=== PATIENT | female | born 1935 | race Caucasian/White ===

== ENCOUNTER 2017-12-18 19:21 | Emergency (ER) | payer MEDICARE, BC ==
[2017-12-18 20:07] LABS: BASO % 0.3 % (0.0-1.0); EOS # 0.5 10^3/uL (0.0-0.50); EOS % 8.6 % (0.0-3.0); HEMATOCRIT 36.2 % (36.0-47.0); HEMOGLOBIN 11.9 g/dl (12.0-15.5); IMMATURE GRANULOCYTE % 0.2 % (0-3.0); LYMPH % 34.3 % (24.0-44.0); MEAN CORPUSCULAR HEMOGLOBIN 30.6 pg (27.0-33.0); MEAN CORPUSCULAR HGB CONC 32.9 g/dl (32.0-36.5); MEAN CORPUSCULAR VOLUME 93.1 fl (80.0-96.0); MONO # 0.8 10^3/uL (0.0-0.8); NEUTROPHILS # 2.6 10^3/uL (1.8-7.7); NEUTROPHILS % 43.6 % (36.0-66.0); PLATELET COUNT, AUTOMATED 176 10^3/uL (150-450); RED BLOOD COUNT 3.89 10^6/uL (4.00-5.40); RED CELL DISTRIBUTION WIDTH 13.6 % (11.5-14.5); WHITE BLOOD COUNT 5.9 10^3/uL (4.0-10.0)
[2017-12-18] MEDS: NITROGLYCERIN 0.4 MG SUBL TABLET SL (20:13)
[2017-12-18] MEDS: ASPIRIN 81 MG CHEW TABLET PO (20:14)
[2017-12-18] MEDS: NS 1,000 ML IV (20:14)
[2017-12-18 20:51] LABS: PROTHROMBIN TIME 12.2 SECONDS (12.1-14.4)
[2017-12-18 21:14] LABS: ALBUMIN 3.3 GM/DL (3.2-5.2); ALBUMIN/GLOBULIN RATIO 0.97 (1.00-1.93); ALKALINE PHOSPHATASE 88 U/L (45-117); ALT/SGPT 19 U/L (12-78); ANION GAP 9 MEQ/L (8-16); AST/SGOT 22 U/L (7-37); BILIRUBIN,DIRECT < 0.1 MG/DL (0.0-0.2); BILIRUBIN,TOTAL 0.3 MG/DL (0.2-1.0); BLOOD UREA NITROGEN 18 MG/DL (7-18); CALCIUM LEVEL 8.3 MG/DL (8.8-10.2); CARBON DIOXIDE LEVEL 25 MEQ/L (21-32); CHLORIDE LEVEL 106 MEQ/L (98-107); CK-MB VALUE MASS < 1.0 NG/ML (<3.6); CPK CREATINE PHOSPHOKINASE 65 U/L (26-192); CREATININE FOR GFR 0.93 MG/DL (0.55-1.30); GLOMERULAR FILTRATION RATE > 60.0 (>32); GLUCOSE, FASTING 97 MG/DL (70-100); MB/CK RELATIVE INDEX 1.54 (< OR =4); NT-PRO BNP 321 PG/ML (<450); POTASSIUM SERUM 3.7 MEQ/L (3.5-5.1); SODIUM LEVEL 140 MEQ/L (136-145); TOTAL PROTEIN 6.7 GM/DL (6.4-8.2); TROPONIN I < 0.02 NG/ML (< 0.10)
[2017-12-18] MEDS: FUROSEMIDE 20 MG TAB PO (21:18)
[2017-12-18] MEDS: LABETALOL HCL 100 MG/20 ML VIAL IV (21:25)
[2017-12-18] MEDS: GI COCKTAIL 50ML BTL(HYOSCYAMINE/MAALOX/LIDOCAINE VISCOUS)(1:3:1) PO (22:31)
[2017-12-18 23:03] LABS: CPK CREATINE PHOSPHOKINASE 59 U/L (26-192); MB/CK RELATIVE INDEX 1.69 (< OR =4); TROPONIN I < 0.02 NG/ML (< 0.10)
== END 2017-12-18 23:59 | disposition home or self-care (01) ==
LOC: M ED 19:21
DX: R07.89 Other chest pain (principal); I10 Essential (primary) hypertension; I25.10 Atherosclerotic heart disease of native coronary artery without angina pectoris; Z82.49 Family history of ischemic heart disease and other diseases of the circulatory system; Z88.1 Allergy status to other antibiotic agents
CPT/HCPCS: 71045

== ENCOUNTER 2020-10-23 02:12 | Inpatient (IN) | payer MEDICARE, BC ==
[~2020-10-23] VITALS: Ht 160 cm; Wt 87.2 kg
[~2020-10-23 02:12] MED LIST: LASI20TA3 PO; LISI-898 PO; METO1TAB87 PO; OMEP10CASR PO
[2020-10-23 03:40] LABS: BASO % 0.6 % (0.0-1.0); EOS # 0.4 10^3/uL (0.0-0.5); EOS % 7.1 % (0.0-3.0); HEMATOCRIT 38.7 % (36.0-47.0); HEMOGLOBIN 12.9 g/dl (12.0-15.5); LYMPH # 2.2 10^3/uL (1.5-5.0); LYMPH % 42.5 % (24.0-44.0); MEAN CORPUSCULAR HEMOGLOBIN 30.6 pg (27.0-33.0); MEAN CORPUSCULAR HGB CONC 33.3 g/dl (32.0-36.5); MEAN CORPUSCULAR VOLUME 91.9 fl (80.0-96.0); MONO # 0.7 10^3/uL (0.0-0.8); NEUTROPHILS # 1.9 10^3/uL (1.5-8.5); NEUTROPHILS % 36.4 % (36.0-66.0); PLATELET COUNT, AUTOMATED 202 10^3/uL (150-450); RED BLOOD COUNT 4.21 10^6/uL (4.00-5.40); WHITE BLOOD COUNT 5.1 10^3/uL (4.0-10.0)
[2020-10-23 03:56] LABS: INR 0.92; PROTHROMBIN TIME 12.6 SECONDS (12.5-14.3)
[2020-10-23 03:57] LABS: PARTIAL THROMBOPLASTIN TIME 26.1 SECONDS (24.2-38.5)
[2020-10-23 04:09] LABS: ALBUMIN 3.6 GM/DL (3.2-5.2); ALT/SGPT 20 U/L (12-78); BILIRUBIN,DIRECT 0.1 MG/DL (0.0-0.2); BILIRUBIN,TOTAL 0.4 MG/DL (0.2-1.0); BLOOD UREA NITROGEN 15 MG/DL (7-18); CALCIUM LEVEL 8.9 MG/DL (8.8-10.2); CARBON DIOXIDE LEVEL 32 MEQ/L (21-32); CHLORIDE LEVEL 105 MEQ/L (98-107); CREATININE FOR GFR 0.77 MG/DL (0.55-1.30); GLOMERULAR FILTRATION RATE > 60.0 (>32); GLUCOSE, FASTING 92 MG/DL (70-100); LIPASE 149 U/L (73-393); POTASSIUM SERUM 4.7 MEQ/L (3.5-5.1); SODIUM LEVEL 140 MEQ/L (136-145); TOTAL PROTEIN 7.2 GM/DL (6.4-8.2)
[2020-10-23] MEDS ORDERED: hydrALAZINE 20MG/ML 1ML VIAL (J0360 PER 20MG) IV ONE (04:40)
[2020-10-23] MEDS ORDERED: D5W/0.45% SODIUM CHLORIDE 1,000 ML IV SCH (05:40)
[2020-10-23 06:02] LABS: RSV AMPLIFICATION NEGATIVE (NEGATIVE)
[2020-10-23] MEDS: SUCRALFATE SUSP 1GM/10ML UD PO SCH ×3 (06:15→19:35)
--- NOTE | 2020-10-23 06:32 | HPEPDOC ---
[facility] Medical History & Physical Date of Admission Oct 23, 2020 Date of Service: Oct 23, 2020 History and Physical CHIEF COMPLAINT: Bright red blood per rectum HISTORY OF PRESENT ILLNESS: 85-year-old female with history of chronic atrial flutter, right lower extremity DVT bilateral PE hypertension diastolic congestive heart failure on chronic anticoagulation presented to emergency room with 2-week history of on and off bright red blood per rectum which is painless without fever or chills at home. Patient was told to stop her oral anticoagulation for the past 7 days currently now 8 days when she presents with complaints of bright red blood in the toilet as well as in her diapers which she wears at night. she denies any diaphoresis shortness of breath palpitations lightheadedness near syncope or falls at home. She was seen by her primary care physician today and urged to come to the ER for current issues. Patient had a colonoscopy 10 years ago which showed colonic polyps by Dr. Nathan in [place]. She has had no prior history of upper GI bleed and currently denies any hematemesis coffee-ground emesis abdominal pain nausea or vomiting. Patient denies any history of AVM, peptic ulcer disease- gastric or duodenal in the past. In the ER patient was found to have hypertensive urgency with blood pressure of 242 systolic, improved to 138 mmHg by the time she was admitted, hemoglobin of 12.9 with a heme positive stool. Hospitalist was asked to admit the patient for recurrent lower GI bleed in the s etting of chronic anticoagulation. PAST MEDICAL HISTORY: chronic atrial flutter, right lower extremity DVT bilateral PE hypertension diastolic congestive heart failure on chronic anticoagulation PAST SURGICAL HISTORY: Bilateral cataract surgery open reduction internal fixation of the right knee tu bal ligation hernia repair bilateral carpal tunnel surgery SOCIAL HISTORY: Lives with her healthcare proxy is her phone # [phone] denies alcohol recreational drug use or tobacco abuse retired teacher senior director of [employer] FAMILY HISTORY: Noncontributory due to advanced age of 85 ALLERGIES: Please see below. REVIEW OF SYSTEMS: 10 point review of systems negative aside from positive findings in HPI HOME MEDICATIONS: Please see below. PHYSICAL EXAMINATION: VITAL SIGNS: See below GENERAL APPEARANCE: No distress no pallor no cyanosis HEENT: No JVD no thyromegaly no cervical lymphadenopathy pupils equally round reactive extract muscles intact CARDIOVASCULAR: Irregularly irregular S1-S2 no murmurs noted LUNGS: Clear to auscultation no wheezing or rales ABDOMEN: Positive bowel sounds soft nontender nondistended heme positive stool no hepatosplenomegaly no rebound or guarding EXTREMITIES: No cyanosis no clubbing LABORATORY DATA: See below. IMAGING: See below MICROBIOLOGY: Please see below. ASSESSMENT: 85-year-old female with history of chronic atrial flutter pulmonary embolism bilaterally 1 year ago with right lower extremity DVT on chronic anticoagulation until 2 weeks ago and patient had on and off bright red blood per rectum which is painless without fever or chills. patient has been off anticoagulation for 7 days with ongoing bright red blood per rectum with asymptomatic blood loss. Patient does not have anemia with hemoglobin of 12.9 and hemodynamically stable. she will be admitted as an inpatient for 2 midnights for the following acute issues. Acute blood loss -Patient will be kept n.p.o. Hemoglobin hematocrit every 6 hourly she is currently hemodynamically stable and will be kept on D5 half-normal saline to prevent hypoglycemia while n.p.o. Acute GI bleed -Suspected lower GI bleed most likely diverticular bleed or AVM. Patient denies any pain -Transfuse RBC if hemoglobin is less than 8 or ongoing blood loss with symptomatic anemia. -surgical consult for colonoscopy to be decided by a.m. team -Hemoglobin hematocrit every 6 hourly. Currently hemodynamically stable -Empiric PPI and Carafate for now -Obtain previous colonoscopy report from her softball core molder in [place] History of chronic atrial flutter -Resume on metoprolol -rate controlled History of pulmonary embolism/History of right lower extremity DVT -Off oral anticoagulation for 7 days -If ongoing bleeding patient may need an IVC filter since oral anticoagulation is contraindicated with active GI bleed -May need to repeat venous Dopplers of bilateral lower extremities and CT chest rule out active PE and DVT. -If patient continues to have active PE and DVT and oral anticoagulation is contraindicated she will need an IVC filter placement -Defer to morning team for IR consult for IVC filter placement Hypertensive urgency, resolved -Resume home medications including lisinopril and metoprolol. May add Norvasc if not well controlled on home medications History of diastolic heart failure -Check 2D echo -D5 half-normal saline at 75 mL's an hour and monitor for fluid overload Diet n.p.o. DVT prophylaxis compression stockings due to active GI bleed Vital Signs Vital Signs Date Time Temp Pulse Resp B/P (MAP) Pulse Ox O2 Delivery O2 Flow Rate FiO2 10/23/20 05:57 68 95 10/23/20 05:48 138/60 (86) 10/23/20 03:00 18 10/23/20 02:13 97.0 Room Air Laboratory Data Labs 24H Laboratory Tests 2 10/23/20 03:17: Immature Granulocyte % (Auto) 0.4, Neutrophils (%) (Auto) 36.4, Lymphocytes (%) (Auto) 42.5, Monocytes (%) (Auto) 13.0H, Eosinophils (%) (Auto) 7.1H, Basophils (%) (Auto) 0.6, Neutrophils # (Auto) 1.9, Lymphocytes # (Auto) 2.2, Monocytes # (Auto) 0.7, Eosinophils # (Auto) 0.4, Basophils # (Auto) 0.0, Nucleated Red B lood Cells % (auto) 0.0, Prothrombin Time 12.6, Prothromb Time International Ratio 0.92, Activated Partial Thromboplast Time 26.1, Anion Gap 3L, Glomerular Filtration Rate > 60.0, Lactic Acid Level 1.4, Calcium Level 8.9, Total Bilirubin 0.4, Direct Bilirubin 0.1, Aspartate Amino Transf (AST/SGOT) 20, Alanine Aminotransferase (ALT/SGPT) 20, Alkaline Phosphatase 82, Total Protein 7.2, Albumin 3.6, Albumin/Globulin Ratio 1.0L, Lipase 149 10/23/20 04:38: Coronavirus (COVID-19)(PCR) NEGATIVE, Influenza Type A (RT-PCR) NEGATIVE, Influenza Type B (RT-PCR) NEGATIVE, Respiratory Syncytial Virus (PCR) NEGATIVE CBC/BMP Laboratory Tests 10/23/20 03:17 Home Medications Scheduled Furosemide (Lasix) 20 Mg Tab, 1 TAB PO DAILY Lisinopril (Lisinopril) 5 Mg Tab, 1 TAB PO DAILY Metoprolol Tartrate (Metoprolol Tartrate) 25 Mg Tab, 1 TAB PO BID Omeprazole (Omeprazole) 10 Mg Capcr, 1 CAP PO DAILY Allergies Coded Allergies: alendronate sodium (Verified Allergy, Unknown, 10/23/20) ciprofloxacin (Verified Allergy, Unknown, 10/23/20) A-FIB/CHADSVASC A-FIB History Current/History of A-Fib/PAF?: Yes Current PO Anticoag Therapy: No Age/Risk Factor Scoring CHADSVASC: CHADSVASC Response (Comments) Value Age Risk Factor Age >/= 75 years old 2 Gender Risk Factor Female 1 Hx of CHF Yes 1 Hx of HTN Yes 1 Hx of Stroke/TIA/or VTE No 0 Hx of Diabetes No 0 Hx of Vascular Disease No 0 Total 5 Treatment Treatment ordered: NONE Reason Anticoagulant not given: Current bleeding ALYSSA GREENE MD Oct 23, 2020 06:32
[2020-10-23] MEDS ORDERED: FURO20TA2 PO (06:56)
[2020-10-23] MEDS ORDERED: FLEC50HA PO (06:56)
[2020-10-23] MEDS ORDERED: LOSA25TA14 PO (06:56)
[2020-10-23] MEDS ORDERED: METO1TAB87 PO (06:56)
[2020-10-23] MEDS ORDERED: LOSARTAN 25 MG TAB PO SCH (09:00)
[2020-10-23] MEDS ORDERED: FUROSEMIDE 20MG/2ML VIAL (J1940) IV SCH (09:00)
[2020-10-23] MEDS ORDERED: lisinopriL 5 MG TAB PO SCH (09:00)
[2020-10-23] MEDS: PANTOPRAZOLE 40MG VIAL (C9113 PER 1) IV SCH ×2 (09:09→21:36)
[2020-10-23] MEDS: METOPROLOL TART 25 MG TABLET PO SCH ×2 (09:09→21:37)
[2020-10-23 09:15] LABS: BASO # 0.1 10^3/uL (0.0-0.2); BASO % 1.1 % (0.0-1.0); EOS # 0.3 10^3/uL (0.0-0.5); EOS % 5.9 % (0.0-3.0); HEMOGLOBIN 12.8 g/dl (12.0-15.5); LYMPH % 38.7 % (24.0-44.0); MEAN CORPUSCULAR HEMOGLOBIN 30.9 pg (27.0-33.0); MEAN CORPUSCULAR HGB CONC 33.7 g/dl (32.0-36.5); MEAN CORPUSCULAR VOLUME 91.8 fl (80.0-96.0); MONO # 0.6 10^3/uL (0.0-0.8); MONO % 11.5 % (2.0-8.0); NEUTROPHILS # 2.2 10^3/uL (1.5-8.5); NEUTROPHILS % 42.6 % (36.0-66.0); PLATELET COUNT, AUTOMATED 208 10^3/uL (150-450); RED BLOOD COUNT 4.14 10^6/uL (4.00-5.40); WHITE BLOOD COUNT 5.2 10^3/uL (4.0-10.0)
[2020-10-23 09:41] LABS: ALBUMIN 3.4 GM/DL (3.2-5.2); ALT/SGPT 20 U/L (12-78); BILIRUBIN,TOTAL 0.5 MG/DL (0.2-1.0); BLOOD UREA NITROGEN 13 MG/DL (7-18); CARBON DIOXIDE LEVEL 30 MEQ/L (21-32); CHLORIDE LEVEL 106 MEQ/L (98-107); CREATININE FOR GFR 0.68 MG/DL (0.55-1.30); GLOMERULAR FILTRATION RATE > 60.0 (>32); GLUCOSE, FASTING 89 MG/DL (70-100); MAGNESIUM LEVEL 2.1 MG/DL (1.8-2.4); SODIUM LEVEL 142 MEQ/L (136-145)
[2020-10-23] MEDS: FLECAINIDE 50MG TABLET PO SCH ×2 (10:38→21:37)
--- NOTE | 2020-10-23 11:07 | IPNPDOC ---
Text Note Date of Service The patient was seen on 10/23/20. NOTE Subjective: No any acute events overnight. Blood pressure within normal limits in the morning Objective: GENERAL APPEARANCE: NAD HEENT: no scleral icterus, no JVD, EOMI CARDIOVASCULAR: Irregularly irregular LUNGS: CTA ABDOMEN: soft & not tender w palpation MUSCULOSKELETAL: no cyanosis, no swelling INTEGUMENT: no generalized pallor NEUROLOGICAL: cranial nerve function from 2-12 intact i, follows commands, speech not dysarthric Assessment and plan Patient is 85 years old female with past medical history of 85-year-old female with history of chronic atrial flutter pulmonary embolism bilaterally 1 year ago with right lower extremity DVT on chronic anticoagulation until 2 weeks ago and patient had on and off bright red blood per rectum which is painless without fever or chills. patient has been off anticoagulation for 7 days with ongoing bright red blood per rectum with asymptomatic blood loss. Acute blood loss/GI bleed Hemoglobin stable in the morning 12.5 Continue clear liquid diet H&H every 6 hours PPI twice daily We will proceed with CT scan abdomen and pelvis to rule out diverticulosis, mass Atrial fibrillation/atrial flutter Heart rate under control Oral target anticoagulation on hold History of pulmonary embolism/History of right lower extremity DVT Continue to monitor H&H Patient stated that pulmonary embolism and legs DVT were unprovoked I will discuss with interventional radiologist IVC filter placement Hypertensive urgency/hypertension Resume home medications Blood pressure under control Diastolic CHF Stop IV fluid Continue home meds Not in acute exacerbation VS,Fishbone, I+O VS, Fishbone, I+O Laboratory Tests 10/23/20 03:17 10/23/20 08:51 Vital Signs Date Time Temp Pulse Resp B/P (MAP) Pulse Ox O2 Delivery O2 Flow Rate FiO2 10/23/20 10:45 59 95 10/23/20 10:00 18 135/68 (90) Room Air 10/23/20 07:49 97.7 RYAN ZAPIEN DO Oct 23, 2020 11:07
[2020-10-23] MEDS: GASTROGRAFIN SOLUTION 30ML PO SCH ×4 (11:45→16:59)
[2020-10-23] MEDS ORDERED: diphenhydrAMINE 50MG/ML VIAL (J1200) As Ordered ONE (12:20)
[2020-10-23] MEDS ORDERED: LIDOCAINE 1% MDV 20ML VIAL As Ordered ONE (12:21)
[2020-10-23] MEDS ORDERED: ISOVUE-300 61% 50ML VIAL As Ordered ONE ×2 (12:21→12:27)
[2020-10-23] MEDS ORDERED: MIDAZOLAM INJ 2MG/2ML VIAL (J2250 PER 1MG) As Ordered ONE (12:21)
[2020-10-23] MEDS ORDERED: fentaNYL 100 MCG/2 ML INJECTION (J3010) As Ordered ONE (12:21)
--- NOTE | 2020-10-23 13:42 | IRMSE ---
[facility] IR Moderate Sedation Eval. Date and Time Date: Oct 23, 2020 Time: 12:37 ASA Classification ASA Classification: II-Mild systemic disease, III-Severe systemic dis. Mallampati Score: II NPO: Yes Obstructive Sleep Apnea: No Interval Plan: moderate sedation DEANGELO QUINONEZ MD Oct 23, 2020 13:42
[2020-10-23 14:18] VITALS: BP 182/95
[2020-10-23 14:33] VITALS: BP 180/94
[2020-10-23 14:54] VITALS: BP 169/76
[2020-10-23 15:15] LABS: HEMOGLOBIN 12.6 g/dl (12.0-15.5)
[2020-10-23 15:32] VITALS: BP 164/76
[2020-10-23] MEDS ORDERED: LOSARTAN 50MG TABLET PO ONE (17:30)
[2020-10-23] MEDS ORDERED: ISOVUE-370 76% 100ML VIAL As Ordered ONE (17:49)
[2020-10-23] MEDS ORDERED: CHLORTHALIDONE 25 MG TAB PO ONE (19:00)
--- NOTE | 2020-10-23 19:38 | REPVR ---
PROCEDURE INFORMATION: Exam: CT Abdomen And Pelvis With Contrast Exam date and time: 10/23/2020 6:06 PM Age: 85 years old Clinical indication: Other: Gi bleed TECHNIQUE: Imaging protocol: Computed tomography of the abdomen and pelvis with contrast. Radiation optimization: All CT scans at this facility use at least one of these dose optimization techniques: automated exposure control; mA and/or kV adjustment per patient size (includes targeted exams where dose is matched to clinical indication); or iterative reconstruction. Contrast material: ISOVUE 370; Contrast volume: 100 ml; Contrast route: INTRAVENOUS (IV); COMPARISON: CR PORTABLE CHEST X-RAY 12/18/2017 8:08 PM FINDINGS: Lungs: No suspicious mass or airspace process in the visualized lung bases. Liver: Liver is unremarkable aside from benign simple fluid density hepatic cysts measuring up to 2.4 cm. Gallbladder and bile ducts: Gallbladder is present and shows no evidence of gallstone. Pancreas: Pancreas appears normal. No focal mass or peripancreatic inflammation. Spleen: Spleen appears homogeneous without focal mass. Adrenal glands: Adrenal glands are normal in appearance. Kidneys and ureters: Kidneys are unremarkable aside from a benign simple fluid density exophytic 2.6 cm right renal cyst. Stomach and bowel: No evidence of small bowel obstruction. Terminal ileum has normal appearance. Diverticular changes are present within the colon without inflammation. Appendix: Appendix is not seen. No RLQ inflammation to suggest appendicitis. Intraperitoneal space: No pneumoperitoneum. Vasculature: Infrarenal IVC filter is present. Atherosclerotic change present in the aorta, without aneurysm. Main portal and splenic veins enhance normally. Lymph nodes: No enlarged lymph nodes. Urinary bladder: Urinary bladder appears normal. Reproductive: No enlargement of the uterus or ovaries. Prominence of the vaginal soft tissues which may be thickened. Bones/joints: Bony structures are normal except for lumbar spine degenerative disc changes. Soft tissues: Unremarkable. IMPRESSION: 1. No acute surgical or inflammatory process and no explanation for the clinical history of gastrointestinal hemorrhage. 2. Prominent upper vaginal and cervical soft tissues COMMENTS: For patients with an IVC filter, recommend assessment for a management plan for the patient's IVC filter. If there is no established management plan, recommend referral to an interventional clinician on a nonemergent basis for evaluation. Electronically signed by: Sandor Cates On 10/23/2020 19:38:03 PM
[2020-10-23 21:08] LABS: HEMATOCRIT 36.7 % (36.0-47.0); HEMOGLOBIN 12.3 g/dl (12.0-15.5)
[2020-10-23 22:00] VITALS: BP 155/78
[2020-10-24] MEDS: SUCRALFATE SUSP 1GM/10ML UD PO SCH ×4 (05:27→18:14)
[2020-10-24 06:00] VITALS: BP 137/72
[2020-10-24 06:02] LABS: BASO % 0.7 % (0.0-1.0); EOS # 0.3 10^3/uL (0.0-0.5); EOS % 4.8 % (0.0-3.0); HEMATOCRIT 37.2 % (36.0-47.0); HEMOGLOBIN 12.5 g/dl (12.0-15.5); LYMPH # 1.6 10^3/uL (1.5-5.0); MEAN CORPUSCULAR HEMOGLOBIN 30.9 pg (27.0-33.0); MEAN CORPUSCULAR HGB CONC 33.6 g/dl (32.0-36.5); MEAN CORPUSCULAR VOLUME 92.1 fl (80.0-96.0); MONO # 0.5 10^3/uL (0.0-0.8); NEUTROPHILS % 55.1 % (36.0-66.0); PLATELET COUNT, AUTOMATED 211 10^3/uL (150-450); RED BLOOD COUNT 4.04 10^6/uL (4.00-5.40); WHITE BLOOD COUNT 5.4 10^3/uL (4.0-10.0)
[2020-10-24 06:33] LABS: ALBUMIN 3.3 GM/DL (3.2-5.2); ALT/SGPT 17 U/L (12-78); BILIRUBIN,TOTAL 0.8 MG/DL (0.2-1.0); BLOOD UREA NITROGEN 10 MG/DL (7-18); CALCIUM LEVEL 8.5 MG/DL (8.8-10.2); CARBON DIOXIDE LEVEL 29 MEQ/L (21-32); CHLORIDE LEVEL 105 MEQ/L (98-107); CREATININE FOR GFR 0.89 MG/DL (0.55-1.30); GLOMERULAR FILTRATION RATE > 60.0 (>32); GLUCOSE, FASTING 83 MG/DL (70-100); MAGNESIUM LEVEL 1.9 MG/DL (1.8-2.4); POTASSIUM SERUM 4.2 MEQ/L (3.5-5.1); SODIUM LEVEL 138 MEQ/L (136-145); TOTAL PROTEIN 6.4 GM/DL (6.4-8.2)
[2020-10-24] MEDS ORDERED: PERCOCET 5MG/325MG TAB PO PRN (06:55)
[2020-10-24] MEDS: PANTOPRAZOLE 40MG VIAL (C9113 PER 1) IV SCH ×2 (08:43→19:42)
[2020-10-24] MEDS: FLECAINIDE 50MG TABLET PO SCH ×2 (08:45→19:42)
[2020-10-24] MEDS: LOSARTAN 25 MG TAB PO SCH (08:46)
[2020-10-24] MEDS: METOPROLOL TART 25 MG TABLET PO SCH ×2 (08:46→19:44)
[2020-10-24] MEDS ORDERED: CHLORTHALIDONE 25 MG TAB PO SCH (09:00)
--- NOTE | 2020-10-24 13:10 | IPNPDOC ---
Text Note Date of Service The patient was seen on 10/24/20. NOTE Subjective: Patient stated that yesterday evening she had 1 bowel movement with stool covered with red blood. Objective: GENERAL APPEARANCE: NAD HEENT: no scleral icterus, no JVD, EOMI CARDIOVASCULAR: Irregularly irregular LUNGS: CTA ABDOMEN: soft & not tender w palpation MUSCULOSKELETAL: no cyanosis, no swelling INTEGUMENT: no generalized pallor NEUROLOGICAL: cranial nerve function from 2-12 intact i, follows commands, speech not dysarthric Assessment and plan Patient is 85 years old female with past medical history of 85-year-old female with history of chronic atrial flutter pulmonary embolism bilaterally 1 year ago with right lower extremity DVT on chronic anticoagulation until 2 weeks ago and patient had on and off bright red blood per rectum which is painless without fever or chills. patient has been off anticoagulation for 7 days with ongoing bright red blood per rectum with asymptomatic blood loss. Acute blood loss/GI bleed Hemoglobin stable in the morning 12.5 Continue clear liquid diet H&H every 6 hours PPI twice daily CT scan abdomen and pelvis showed. No acute surgical or inflammatory process Appreciate/agree with surgical consult Atrial fibrillation/atrial flutter Heart rate under control Oral target anticoagulation on hold History of pulmonary embolism/History of right lower extremity DVT Continue to monitor H&H Patient stated that pulmonary embolism and legs DVT were unprovoked IVC filter placement was placed yesterday Hypertensive urgency/hypertension Continue home medications Blood pressure under control Diastolic CHF I's and O's Continue home meds Not in acute exacerbation VS,Fishbone, I+O VS, Fishbone, I+O Laboratory Tests 10/23/20 14:48 10/23/20 21:03 10/24/20 05:21 Vital Signs Date Time Temp Pulse Resp B/P (MAP) Pulse Ox O2 Delivery O2 Flow Rate FiO2 10/24/20 09:00 74 130/74 10/24/20 06:00 98.2 18 95 Room Air 10/23/20 13:35 2.0 I&O- Last 24 Hours up to 6 AM 10/24/20 06:00 Intake Total 880 ml Balance 880 ml RYAN ZAPIEN DO Oct 24, 2020 13:09
[2020-10-24 13:39] VITALS: BP 133/72
--- NOTE | 2020-10-24 13:45 | IRCOV ---
[facility] IR Consult Office Visit IR Consult Office Visit DATE: Oct 23, 2020 REASON FOR CONSULTATION/CHIEF COMPLAINT: IVC filter placement. HISTORY OF PRESENT ILLNESS: 85-year-old female with atrial flutter, diastolic heart failure, history of unprovoked bilateral pulmonary emboli and right lower extremity DVT presents to the hospital with GI bleeding. Because of bleeding she stopped her Xarelto for 7 days. She is referred for IVC filter placement as she is not a candidate for anticoagulation. Patient reports a year ago she woke up in the middle of the night, short of breath with chest pain. At that time, she was found to have bilateral pulmonary emboli and right lower extremity DVT. She was started on Eliquis and subsequently changed to Xarelto, for side effects. However, she has had to stop her anticoagulation on and off because of GI bleeding. She has not been on any anticoagulation for the past 7 days and her bright red blood per rectum, continues. Patient has not had recent colonoscopy. She has no history of cancer. Patient denies any new lower extremity swelling or pain. Patient denies chest pain, shortness of breath, orthopnea or paroxysmal nocturnal dyspnea. Patient denies dizziness or syncope. No family history of blood clots. Patient is referred for consideration for IVC filter placement as she is currently not a candidate for anticoagulation, due to bleeding. ALLERGIES: Please see below. HOME MEDICATIONS: Please see below. PAST MEDICAL HISTORY: Atrial flutter Right lower extremity DVT Bilateral PE Hypertension Diastolic Congestive heart failure PAST SURGICAL HISTORY: Cataract surgery Right knee surgery Tubal ligation Hernia repair Carpal tunnel surgery FAMILY HISTORY: Noncontributory. SOCIAL HISTORY: Nonsmoker. Denies alcohol or drugs. Spends 6 months out of the year in [place]. REVIEW OF SYSTEMS: Otherwise negative. PHYSICAL EXAMINATION: VITAL SIGNS: Please see below. GENERAL APPEARANCE: Appears well. Comfortable at rest. HEENT: No scleral icterus. RESPIRATORY: Normal breathing at rest. CARDIOVASCULAR: Normal rate. ABDOMEN: Non-distended. EXTREMITIES: Bilateral lower extremity edema. No asymmetric limb swelling. No calf tenderness. NEUROLOGICAL: Alert and oriented. PSYCHIATRIC: Appropriate to circumstance. LABORATORY DATA: 10/23/2020 hemoglobin 12.8 hematocrit 38 WBC 5.2 platelets 208 sodium 142 potassium 4.0 BUN 13 creatinine 0.68 GFR greater than 60 INR 0.9 Imaging: None. ASSESSMENT/PLAN: 85-year-old female with atrial flutter, diastolic heart failure and recent history of unprovoked bilateral pulmonary emboli and right lower extremity DVT, presents with GI bleeding. She is not able to be anticoagulated due to her GI bleeding. I agree she has indication for IVC filter placement. We discussed the risks and benefits of the procedure and patient is willing to proceed. She is scheduled for IVC filter placement. 2. Patient will need colonoscopy and further workup for her GI bleeding. After filter placement, patient should follow-up with me in 6 months. Depending on the reason for her GI bleeding and if she is able to resume anti-coagulation in the future, there may be indication for filter retrieval in the future. I spent 30 minutes reviewing patient's records and in consultation with the patient. Thank you for this referral. Allergies Coded Allergies: alendronate sodium (Verified Allergy, Unknown, 10/23/20) ciprofloxacin (Verified Allergy, Unknown, 10/23/20) Home Medications Scheduled Flecainide Acetate (Flecainide Acetate), 50 MG PO Q12H, (Reported) Furosemide (Furosemide), 20 MG PO DAILY, (Reported) Losartan Potassium (Losartan Potassium), 25 MG PO DAILY, (Reported) Metoprolol Tartrate (Metoprolol Tartrate), 25 MG PO BID, (Reported) Scheduled PRN Furosemide (Furosemide), 20 MG PO DAILY PRN for EDEMA, (Reported) Discontinued Medications Furosemide (Lasix), 1 TAB PO DAILY Discontinued Reason: Re-entering as new Lisinopril (Lisinopril), 1 TAB PO DAILY, (Reported) Discontinued Reason: Re-entering as new Metoprolol Tartrate (Metoprolol Tartrate), 1 TAB PO BID, (Reported) Discontinued Reason: Re-entering as new Omeprazole (Omeprazole), 1 CAP PO DAILY Discontinued Reason: Pt states not taking VS, I&O, 24H, Fishbone Vital Signs/I&O Vital Signs Date Time Temp Pulse Resp B/P (MAP) Pulse Ox O2 Delivery O2 Flow Rate FiO2 10/24/20 09:00 74 130/74 10/24/20 06:00 98.2 18 95 Room Air 10/23/20 13:35 2.0 I&O- Last 24 Hours up to 6 AM 10/24/20 05:59 Intake Total 880 ml Balance 880 ml Laboratory Data 24H LABS Laboratory Tests 2 10/24/20 05:21: Immature Granulocyte % (Auto) 0.4, Neutrophils (%) (Auto) 55.1, Lymphocytes (%) (Auto) 29.0, Monocytes (%) (Auto) 10.0H, Eosinophils (%) (Auto) 4.8H, Basophils (%) (Auto) 0.7, Neutrophils # (Auto) 3.0, Lymphocytes # (Auto) 1.6, Monocytes # (Auto) 0.5, Eosinophils # (Auto) 0.3, Basophils # (Auto) 0.0, Nucleated Red Blood Cells % (auto) 0.0, Anion Gap 4L, Glomerular Filtration Rate > 60.0, Calcium Level 8.5L, Magnesium Level 1.9, Total Bilirubin 0.8#, Aspartate Amino Transf (AST/SGOT) 16, Alanine Aminotransferase (ALT/SGPT) 17, Alkaline Phosphatase 77, Total Protein 6.4, Albumin 3.3, Albumin/Globulin Ratio 1.1L CBC/BMP Laboratory Tests 10/23/20 14:48 10/23/20 21:03 10/24/20 05:21 DEANGELO QUINONEZ MD Oct 24, 2020 13:45
--- NOTE | 2020-10-24 13:54 | IRPON ---
IR Postoperative Note Date Of Procedure: Oct 23, 2020 Time Of Procedure: 16:00 IR Postoperative Note IR IVC Filter Placement. IR Inferior vena cavogram. IR Ultrasound of the right groin. IR moderate sedation. Clinical Information:Unprovoked bilateral pulmonary emboli and right lower extremity DVT with contraindication to anticoagulation. Physician: Dr. Mora. Procedure: The patient was advised of the benefits, risks, and alternatives of the procedure and informed consent was obtained. A time out was performed with verification of the patient's name, MRN, site of procedure, and type of procedure to be performed. The patient was positioned in the supine position on the angiographic table. The site was prepped and draped in the usual sterile fashion. Moderate sedation was performed by the physician including the presence of an independent trained RN, who assisted in monitoring the patient's level of consciousness and physiological status. Following the administration of fentanyl and Versed, the physician spent 45 minutes of continuous [id number] time with the patient. Preliminary ultrasound of the right groin was performed, demonstrating patent right common femoral vein. The right common femoral vein was accessed, under ultrasound guidance, using a microintroducer system. An 035 Bentson wire was advanced under fluoroscopy guidance, into the central inferior vena cava. The access site was dilated, under fluoroscopy guidance, and a filter sheath was advanced over the wire, and placed into the right common iliac vein. An inferior venacavogram was then performed, demonstrating a normal caliber inferior vena cava without filling defects and the renal vein inflows at the L2 level. No caval anomalies were identified. The filter sheath was then advanced over the wire, under fluoroscopy guidance, c entral to the renal vein inflow. A Cook Celect inferior vena cava filter was then advanced through the sheath and positioned within the infra-renal inferior vena cava. The filter was then deployed in the usual fashion. Positioning was confirmed fluoroscopically. The sheath was then removed and hemostasis obtained with manual compression. The patient tolerated the procedure well and was returned to the PRU in stable condition. EBL: < 5 mL. Complications:None. Conclusions: 1. Normal cavogram. 2. Successful deployment of a Cook Celect inferior vena cava filter in the infra-renal inferior vena cava. 3. Patient to follow-up in IR clinic in 6 months to discuss filter retrieval if appropriate. Thank you for this referral. DEANGELO MORA MD Oct 24, 2020 13:54
[2020-10-24 15:34] LABS: HEMATOCRIT 35.9 % (36.0-47.0); HEMOGLOBIN 11.8 g/dl (12.0-15.5)
[2020-10-24 21:23] LABS: HEMATOCRIT 34.5 % (36.0-47.0); HEMOGLOBIN 11.7 g/dl (12.0-15.5)
[2020-10-24 22:00] VITALS: BP 164/75
[2020-10-25] MEDS: SUCRALFATE SUSP 1GM/10ML UD PO SCH ×3 (00:17→11:52)
[2020-10-25 06:00] VITALS: BP 167/85
[2020-10-25 06:12] LABS: BASO # 0.1 10^3/uL (0.0-0.2); BASO % 0.8 % (0.0-1.0); EOS # 0.4 10^3/uL (0.0-0.5); EOS % 6.2 % (0.0-3.0); HEMATOCRIT 34.4 % (36.0-47.0); HEMOGLOBIN 11.5 g/dl (12.0-15.5); LYMPH # 2.3 10^3/uL (1.5-5.0); LYMPH % 38.9 % (24.0-44.0); MEAN CORPUSCULAR HEMOGLOBIN 30.7 pg (27.0-33.0); MEAN CORPUSCULAR HGB CONC 33.4 g/dl (32.0-36.5); MEAN CORPUSCULAR VOLUME 91.7 fl (80.0-96.0); MONO # 0.7 10^3/uL (0.0-0.8); MONO % 11.7 % (2.0-8.0); NEUTROPHILS # 2.5 10^3/uL (1.5-8.5); NEUTROPHILS % 42.1 % (36.0-66.0); PLATELET COUNT, AUTOMATED 177 10^3/uL (150-450); RED BLOOD COUNT 3.75 10^6/uL (4.00-5.40)
[2020-10-25 06:42] LABS: ALT/SGPT 15 U/L (12-78); BILIRUBIN,TOTAL 0.8 MG/DL (0.2-1.0); BLOOD UREA NITROGEN 8 MG/DL (7-18); CALCIUM LEVEL 8.1 MG/DL (8.8-10.2); CARBON DIOXIDE LEVEL 29 MEQ/L (21-32); CHLORIDE LEVEL 102 MEQ/L (98-107); CREATININE FOR GFR 0.77 MG/DL (0.55-1.30); GLOMERULAR FILTRATION RATE > 60.0 (>32); GLUCOSE, FASTING 89 MG/DL (70-100); MAGNESIUM LEVEL 1.8 MG/DL (1.8-2.4); POTASSIUM SERUM 3.3 MEQ/L (3.5-5.1); SODIUM LEVEL 136 MEQ/L (136-145); TOTAL PROTEIN 6.2 GM/DL (6.4-8.2)
[2020-10-25] MEDS ORDERED: POTASSIUM CHLORIDE 10 MEQ SR TABLET PO ONE (07:50)
[2020-10-25] MEDS: LOSARTAN 25 MG TAB PO SCH (08:14)
[2020-10-25 08:16] VITALS: BP 167/85
[2020-10-25] MEDS: PANTOPRAZOLE 40MG VIAL (C9113 PER 1) IV SCH (08:16)
[2020-10-25] MEDS: FLECAINIDE 50MG TABLET PO SCH (08:16)
[2020-10-25] MEDS: METOPROLOL TART 25 MG TABLET PO SCH (08:16)
[2020-10-25 08:23] LABS: HEMATOCRIT 35.6 % (36.0-47.0); HEMOGLOBIN 11.8 g/dl (12.0-15.5)
[2020-10-25] MEDS ORDERED: COZA1TAB PO (10:44)
[2020-10-25] MEDS ORDERED: PANT40TA29 PO (10:44)
--- NOTE | 2020-10-25 12:28 | CR ---
CONSULTATION DATE: 10/24/2020 REASON FOR CONSULTATION: Anemia. BRIEF HISTORY OF PRESENT ILLNESS: Patient is an 85-year-old female who presents for gastrointestinal (GI) bleeding with anticoagulation for deep venous thromboses (DVTs) and had evidence of pulmonary embolism. Had a vena cava filter placed today and has been stable from a hematocrit standpoint. I am asked to see her for this recurrent gastrointestinal (GI) bleeding that has been bright red blood per rectum that is intermittent in nature. 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 MEDICAL HISTORY: Significant for: 1. History of atrial flutter. 2. History of DVT, PE. 3. Hypertension. 4. Congestive heart failure. 5. Cataracts. 6. Right knee surgery. 7. Tubal ligation. 8. Hernia repair. 9. Carpal tunnel surgery. PHYSICAL EXAMINATION: Reveals an elderly female who looks stated age. HEENT: Unremarkable. LUNGS: Clear. HEART: Irregularly irregular. ABDOMEN: Soft, nontender, nondistended. IMPRESSION AND PLAN: Patient has a lower gastrointestinal (GI) bleed. At this point she is stable, and my recommendation is if she stays stable overnight, from a surgical standpoint she can be discharged home with the plans on outpatient colonoscopy given that she has a pre kindergarten teacher. She can contact them in the morning. I anticipate they may be able to accommodate her and fit her into the endoscopy schedule in the near future. She can obviously followup with us if she has any further questions or concerns or would like to try to arrange an outpatient colonoscopy through our office as necessary.
--- NOTE | 2020-10-25 13:26 | DS.PDOC ---
Discharge Summary General Date of Admission Oct 23, 2020 at 02:13 Date of Discharge 10/25/20 Discharge Summary PROCEDURES PERFORMED DURING STAY: [None]. ADMITTING DIAGNOSES: Acute blood loss/GI bleed History of pulmonary embolism/History of right lower extremity DVT Atrial fibrillation/atrial flutter Hypertensive urgency/hypertension Diastolic CHF DISCHARGE DIAGNOSES: Acute blood loss/GI bleed History of pulmonary embolism/History of right lower extremity DVT Atrial fibrillation/atrial flutter Hypertensive urgency/hypertension Diastolic CHF COMPLICATIONS/CHIEF COMPLAINT: Gi Bleeding. HISTORY OF PRESENT ILLNESS: Patient is 85 years old female with past medical history of 85-year-old female with history of chronic atrial flutter pulmonary embolism bilaterally 1 year ago with right lower extremity DVT on chronic anticoagulation until 2 weeks ago and patient had on and off bright red blood per rectum which is painless without fever or chills. patient has been off anticoagulation for 7 days with ongoing bright red blood per rectum with asymptomatic blood loss. HOSPITAL COURSE: During the hospital stay the following issues addressed Acute blood loss/GI bleed Hemoglobin stable in the morning 12.[address] scan abdomen and pelvis showed. 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 ALLERGIES: Please see below. PHYSICAL EXAMINATION ON DISCHARGE: GENERAL APPEARANCE: NAD HEENT: no scleral icterus, no JVD, EOMI CARDIOVASCULAR: Irregularly irregular LUNGS: CTA ABDOMEN: soft & not tender w palpation MUSCULOSKELETAL: no cyanosis, no swelling INTEGUMENT: no generalized pallor NEUROLOGICAL: cranial nerve function from 2-12 intact i, follows commands, speech not dysarthric LABORATORY DATA: Please see below. PROGNOSIS: Fair ACTIVITY: [As tolerated]. DIET: Cardiac DISPOSITION: 01 Home, Self-Care. DISCHARGE INSTRUCTIONS: Restart anticoagulation only after discussion with PCP and GI team ITEMS TO FOLLOWUP ON ON OUTPATIENT: Follow-up with PCP and GI team DISCHARGE CONDITION: [Stable]. TIME SPENT ON DISCHARGE: 40 minutes. Vital Signs/I&Os Vital Signs Date Time Temp Pulse Resp B/P (MAP) Pulse Ox O2 Delivery O2 Flow Rate FiO2 10/25/20 08:16 64 167/85 10/25/20 06:00 97.5 18 94 Room Air 10/23/20 13:35 2.0 I&O- Last 24 Hours up to 6 AM 10/25/20 06:00 Intake Total 2440 ml Balance 2440 ml Laboratory Data Labs 24H Laboratory Tests 2 10/25/20 05:53: Immature Granulocyte % (Auto) 0.3, Neutrophils (%) (Auto) 42.1, Lymphocytes (%) (Auto) 38.9, Monocytes (%) (Auto) 11.7H, Eosinophils (%) (Auto) 6.2H, Basophils (%) (Auto) 0.8, Neutrophils # (Auto) 2.5, Lymphocytes # (Auto) 2.3, Monocytes # (Auto) 0.7, Eosinophils # (Auto) 0.4, Basophils # (Auto) 0.1, Nucleated Red Blood Cells % (auto) 0.0, Anion Gap 5L, Glomerular Filtration Rate > 60.0, Calcium Level 8.1L, Magnesium Level 1.8, Total Bilirubin 0.8, Aspartate Amino Transf (AST/SGOT) 13, Alanine Aminotransferase (ALT/SGPT) 15, Alkaline Phosphatase 70, Total Protein 6.2L, Albumin 3.0L, Albumin/Globulin Ratio 0.9L CBC/BMP Laboratory Tests 10/24/20 15:10 10/24/20 21:14 10/25/20 05:53 10/25/20 08:03 Discharge Medications Scheduled Flecainide Acetate (Flecainide Acetate) 50 Mg Tablet, 50 MG PO Q12H, (Reported) Furosemide (Furosemide) 20 Mg Tablet, 20 MG PO DAILY, (Reported) TAKES AROUND 1500 Losartan Potassium (Cozaar) 25 Mg Tablet, 50 MG PO DAILY Metoprolol Tartrate (Metoprolol Tartrate) 25 Mg Tablet, 25 MG PO BID, (Reported) Pantoprazole Sodium (Pantoprazole Sodium) 40 Mg Tablet.dr, 40 MG PO DAILY Scheduled PRN Furosemide (Furosemide) 20 Mg Tablet, 20 MG PO DAILY PRN for EDEMA, (Reported) TAKES IF WEIGHT IS UP MORE THAN 2 POUNDS Allergies Coded Allergies: alendronate sodium (Verified Allergy, Unknown, 10/23/20) ciprofloxacin (Verified Allergy, Unknown, 10/23/20) RYAN ZAPIEN DO Oct 25, 2020 13:26
--- NOTE | 2020-10-25 14:15 | ECHO ---
ECHOCARDIOGRAM DATE OF PROCEDURE: 10/24/2020 Age: Gender: Height: 160 cm Weight: 87 kg REFERRING PHYSICIAN: Dr. Caroline Joseph. INDICATION: Heart failure, unspecified. MEASUREMENTS: 2D Measurements: Interventricular septum 1.60 cm Posterior wall 1.50 cm Left ventricle diastole 2.9 cm Left ventricle systole 1.6 cm Aortic root at the sinus of Valsalva 3.9 cm Proximal ascending aorta 3.6 cm Left atrium 3.3 cm Doppler Measurements: No aortic stenosis or regurgitation LVOT velocity 134 cm/s LVOT VTI 27.4 cm No mitral regurgitation or stenosis Mitral E velocity 64.7 cm/s Mitral A velocity 92.5 cm/s Mitral deceleration time 291 msec Trace tricuspid regurgitation Very mild pulmonic regurgitation MITRAL ANNULAR TISSUE DOPPLER E prime septal 6.2 cm/s, E prime lateral 6.4 cm/s DESCRIPTION: Rhythm was sinus. This was a moderately technically difficult echocardiogram. This was a 2D, M-mode, color flow Doppler, and pulsed wave Doppler examination including mitral annular tissue Doppler. CONCLUSIONS: 1. Moderate concentric left ventricle hypertrophy with reduced LV cavity size. Hyperdynamic LV systolic function. LVEF 75% by visual estimate. No regional LV wall motion abnormalities. Grade 1 LV diastolic dysfunction. 2. Mild dilatation of the aortic root at the level of the sinus of Valsalva. 3. Very mild aortic valve sclerosis of a 3-cusp aortic valve. No aortic regurgitation. 4. Suggestive of normal central venous pressure (5-10 mmHg). 5. Moderately technically difficult echocardiogram.
== END 2020-10-25 13:15 | disposition home or self-care (01) | DRG 378 ==
LOC: M ED 02:12 → M ED INP 02:13 → ENRESERV 11:35 → M MS5PR 14:00
PROVIDERS: ADMIT General Practice; ATTEND Internal Medicine
PROC: 06H03DZ Insertion of Intraluminal Device into Inferior Vena Cava, Percutaneous Approach (ICD-10-PCS; principal; 2020-10-23 12:30)
DX: K62.5 Hemorrhage of anus and rectum (principal); Q27.30 Arteriovenous malformation, site unspecified; I50.32 Chronic diastolic (congestive) heart failure; D62 Acute posthemorrhagic anemia; I48.92 Unspecified atrial flutter; I16.0 Hypertensive urgency; I48.91 Unspecified atrial fibrillation; Z86.718 Personal history of other venous thrombosis and embolism; Z86.711 Personal history of pulmonary embolism; I11.0 Hypertensive heart disease with heart failure; Z79.899 Other long term (current) drug therapy; Z88.8 Allergy status to other drugs, medicaments and biological substances; Z98.41 Cataract extraction status, right eye; Z98.42 Cataract extraction status, left eye

== ENCOUNTER → 2020-12-16 | Outpatient (CLI) | payer MEDICARE, BC ==
[~2020-12-16] MED LIST changes: +COZA1TAB PO; +FLEC50HA PO; +FURO20TA2 PO; +LOSA25TA14 PO; +PANT40TA29 PO
== END ==
LOC: M LABSMTC 10:23
PROVIDERS: ATTEND Nurse Practitioner Critical Care Medicine
DX: Z20.822 Contact with and (suspected) exposure to COVID-19 (principal)

== ENCOUNTER → 2021-01-10 | Outpatient (CLI) | payer MEDICARE, BC ==
[~2021-01-10] MED LIST changes: +ISOVUE-370 76% 100ML VIAL As Ordered ONE
--- NOTE | 2021-01-10 18:47 | REPVR ---
PROCEDURE INFORMATION: Exam: CT Chest With Contrast; Diagnostic Exam date and time: 01/10/2021 6:06 PM Age: 85 years old Clinical indication: Condition or disease; Other: Colon CA staging TECHNIQUE: Imaging protocol: Diagnostic computed tomography of the chest with contrast. 3D rendering (Not supervised by radiologist): MIP and/or 3D reconstructed images were created by the technologist. Radiation optimization: All CT scans at this facility use at least one of these dose optimization techniques: automated exposure control; mA and/or kV adjustment per patient size (includes targeted exams where dose is matched to clinical indication); or iterative reconstruction. Contrast material: ISOVUE 370; Contrast volume: 75 ml; Contrast route: INTRAVENOUS (IV); COMPARISON: CR PORTABLE CHEST X-RAY 12/18/2017 8:08 PM FINDINGS: Thyroid: 10 mm low-attenuation nodule in the thyroid isthmus without suspicious features. No follow-up suggested. Lungs: Well inflated lungs with flattened diaphragmatic contours and increased retrosternal airspace consistent with COPD. Pleural spaces: Unremarkable. No pneumothorax. No pleural effusion. Heart: Unremarkable. No cardiomegaly. No pericardial effusion. 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 maximally. There is no dissection or saccular component. Lymph nodes: Unremarkable. No enlarged lymph nodes. Liver: Multiple liver cysts demonstrated measuring up to 2.6 cm in the right lobe of the liver. Bones/joints: The spine demonstrates mild degenerative changes. Soft tissues: Unremarkable. IMPRESSION: 1. There is fusiform dilatation of the supravalvular ascending thoracic aorta which measures 4 cm. maximally. There is no dissection or saccular component. 2. COPD. 3. No acute findings. COMMENTS: Consistent with the [employer]'s Incidental Findings Committee white paper (J Am Edward Radiol 2015): In patients aged 35 years and older with an incidental thyroid nodule equal to or greater than 1.[address], MRI or extrathyroidal US, further evaluation with dedicated thyroid US is recommended for patients with normal life expectancy and without comorbidities. For smaller nodules without suspicious features, no further evaluation or follow up is recommended. Electronically signed by: Edilson Castro On 01/10/2021 18:47:18 PM
== END ==
LOC: M RAD 17:31
PROVIDERS: ATTEND Colon & Rectal Surgery
DX: C18.0 Malignant neoplasm of cecum (principal); E04.1 Nontoxic single thyroid nodule; I77.810 Thoracic aortic ectasia; J44.9 Chronic obstructive pulmonary disease, unspecified; K76.89 Other specified diseases of liver
CPT/HCPCS: 71260; Q9967

== ENCOUNTER → 2021-11-03 | Outpatient (CLI) | payer MEDICARE, BC ==
[~2021-11-03] MED LIST changes: +GASTROGRAFIN SOLUTION 30ML (Q9963) As Ordered ONE; -LISI-898 PO; +LISI5TAB11 PO; +LOSA25TA13 PO; -LOSA25TA14 PO
== END ==
LOC: M RAD 11:52
PROVIDERS: ATTEND Colon & Rectal Surgery
DX: C18.0 Malignant neoplasm of cecum (principal); Z15.09 Genetic susceptibility to other malignant neoplasm; N28.1 Cyst of kidney, acquired; K86.89 Other specified diseases of pancreas; Z95.828 Presence of other vascular implants and grafts; K57.90 Diverticulosis of intestine, part unspecified, without perforation or abscess without bleeding; E04.1 Nontoxic single thyroid nodule; I31.3 Pericardial effusion (noninflammatory); I70.0 Atherosclerosis of aorta; I25.10 Atherosclerotic heart disease of native coronary artery without angina pectoris; I71.2 Thoracic aortic aneurysm, without rupture; K76.89 Other specified diseases of liver; M51.34 Other intervertebral disc degeneration, thoracic region; I51.7 Cardiomegaly
CPT/HCPCS: 71260; 74177; Q9963; Q9967

== ENCOUNTER 2021-12-04 20:58 | Observation (INO) | payer MEDICARE, BC ==
[~2021-12-04] VITALS: Ht 160 cm; Wt 82.7 kg
[~2021-12-04 20:58] MED LIST changes: -GASTROGRAFIN SOLUTION 30ML (Q9963) As Ordered ONE; -ISOVUE-370 76% 100ML VIAL As Ordered ONE
[2021-12-04 21:30] VITALS: BP 217/100
[2021-12-04 21:33] VITALS: BP 217/100
[2021-12-04 21:37] LABS: BASO # 0.1 10^3/uL (0.0-0.2); EOS # 0.4 10^3/uL (0.0-0.5); EOS % 7.9 % (0.0-3.0); HEMOGLOBIN 13.1 g/dl (12.0-15.5); LYMPH # 2.2 10^3/uL (1.5-5.0); LYMPH % 42.4 % (24.0-44.0); MEAN CORPUSCULAR HEMOGLOBIN 30.5 pg (27.0-33.0); MEAN CORPUSCULAR HGB CONC 32.8 g/dl (32.0-36.5); MEAN CORPUSCULAR VOLUME 93.2 fl (80.0-96.0); MONO # 0.6 10^3/uL (0.0-0.8); MONO % 11.4 % (2.0-8.0); NEUTROPHILS # 1.9 10^3/uL (1.5-8.5); NEUTROPHILS % 36.9 % (36.0-66.0); PLATELET COUNT, AUTOMATED 208 10^3/uL (150-450); RED BLOOD COUNT 4.29 10^6/uL (4.00-5.40); WHITE BLOOD COUNT 5.2 10^3/uL (4.0-10.0)
[2021-12-04 21:45] VITALS: BP 228/94
[2021-12-04 21:50] LABS: INR 0.89; PROTHROMBIN TIME 12.5 SECONDS (12.7-14.5)
[2021-12-04 21:51] LABS: PARTIAL THROMBOPLASTIN TIME 26.8 SECONDS (25.9-37.0)
[2021-12-04] MEDS: hydrALAZINE 20MG/ML 1ML VIAL (J0360 PER 20MG) IV PRN ×2 (21:57→22:29)
[2021-12-04 22:00] VITALS: BP 214/98
[2021-12-04 22:11] LABS: CK-MB VALUE MASS < 1.0 NG/ML (<3.6); CPK CREATINE PHOSPHOKINASE 72 U/L (26-192); MB/CK RELATIVE INDEX 1.39 (< OR =4)
[2021-12-04 22:15] VITALS: BP 172/81
[2021-12-04 22:16] LABS: RSV AMPLIFICATION NEGATIVE (NEGATIVE)
[2021-12-04 22:30] VITALS: BP 172/80
[2021-12-04 23:31] LABS: APPEARANCE, URINE MANUAL CLEAR (CLEAR); BILIRUBIN, URINE MANUAL NEGATIVE (NEGATIVE); BLOOD URINE MANUAL NEGATIVE (NEGATIVE); COLOR, URINE MANUAL YELLOW (YELLOW); GLUCOSE, URINE (UA) MANUAL NEGATIVE (NEGATIVE); KETONE, URINE MANUAL NEGATIVE (NEGATIVE); LEUKOCYTE ESTERASE, URINE MAN POSITIVE (NEGATIVE); NITRITE, URINE MANUAL NEGATIVE (NEGATIVE); PROTEIN, URINE MANUAL NEGATIVE (NEGATIVE); UROBILINOGEN, URINE MANUAL NORMAL (NORMAL)
[2021-12-04 23:37] LABS: BACTERIA, URINE NONE SEEN; HYALINE CAST, URINE NONE SEEN /lpf (0-1); SQUAMOUS EPITHELIAL CELL URINE SMALL AMOUNT /hpf (SMALL AMT)
[2021-12-04 23:38] LABS: RENAL EPITHELIAL CELLS, URINE SMALL AMOUNT /hpf
[2021-12-04] MEDS ORDERED: ISOVUE-370 76% 100ML VIAL As Ordered ONE (23:52)
[2021-12-05] VITALS (9 sets, daily range): BP systolic 115–202; BP diastolic 56–94
[2021-12-05] MEDS ORDERED: CALC250T PO (00:48)
[2021-12-05] MEDS ORDERED: VITA100093 PO (00:48)
[2021-12-05] MEDS ORDERED: RA T500C2 PO (00:48)
[2021-12-05] MEDS ORDERED: GLUCTAB7 PO (00:48)
[2021-12-05] MEDS ORDERED: VITMTA PO (00:48)
[2021-12-05] MEDS ORDERED: PRES10CA2 PO (00:48)
[2021-12-05] MEDS ORDERED: LOSA25TA13 PO (00:48)
[2021-12-05] MEDS ORDERED: HOME MED LIST COMPLETE! XX SCH (00:50)
[2021-12-05] MEDS ORDERED: ASPIRIN 81 MG CHEW TABLET PO ONE ×2 (01:25→07:00)
[2021-12-05] MEDS ORDERED: hydrALAZINE 20MG/ML 1ML VIAL (J0360 PER 20MG) IV PRN (01:25)
[2021-12-05] MEDS ORDERED: META28.32 PO (01:58)
[2021-12-05] MEDS ORDERED: ASPIRIN 81 MG CHEW TABLET PO SCH (09:00)
[2021-12-05 09:02] LABS: BLOOD UREA NITROGEN 13 MG/DL (7-18); CALCIUM LEVEL 9.1 MG/DL (8.8-10.2); CARBON DIOXIDE LEVEL 19 MEQ/L (21-32); CHLORIDE LEVEL 105 MEQ/L (98-107); CREATININE FOR GFR 0.68 MG/DL (0.55-1.30); GLOMERULAR FILTRATION RATE > 60.0 (>32); GLUCOSE, FASTING 112 MG/DL (70-100); SODIUM LEVEL 133 MEQ/L (136-145)
[2021-12-05] MEDS: LOSARTAN 25 MG TAB PO SCH (10:18)
[2021-12-05] MEDS: METOPROLOL TART 25 MG TABLET PO SCH ×2 (10:19→20:39)
[2021-12-05] MEDS: FLECAINIDE 50MG TABLET PO SCH ×2 (10:20→20:39)
[2021-12-05] MEDS ORDERED: ATORVASTATIN 20 MG TAB PO SCH (21:00)
[2021-12-06] VITALS: BP 120/62
[2021-12-06 04:00] VITALS: BP 139/64
[2021-12-06 06:40] LABS: HEMATOCRIT 34.6 % (36.0-47.0); HEMOGLOBIN 11.7 g/dl (12.0-15.5); MEAN CORPUSCULAR HEMOGLOBIN 30.7 pg (27.0-33.0); MEAN CORPUSCULAR HGB CONC 33.8 g/dl (32.0-36.5); MEAN CORPUSCULAR VOLUME 90.8 fl (80.0-96.0); PLATELET COUNT, AUTOMATED 185 10^3/uL (150-450); RED BLOOD COUNT 3.81 10^6/uL (4.00-5.40); WHITE BLOOD COUNT 6.3 10^3/uL (4.0-10.0)
[2021-12-06 07:02] LABS: BLOOD UREA NITROGEN 15 MG/DL (7-18); CALCIUM LEVEL 8.7 MG/DL (8.8-10.2); CARBON DIOXIDE LEVEL 29 MEQ/L (21-32); CHLORIDE LEVEL 105 MEQ/L (98-107); CREATININE FOR GFR 0.76 MG/DL (0.55-1.30); GLOMERULAR FILTRATION RATE > 60.0 (>32); GLUCOSE, FASTING 86 MG/DL (70-100); SODIUM LEVEL 139 MEQ/L (136-145)
[2021-12-06 08:15] VITALS: BP_SYST 137; BP_SYST 140; BP_DIAS 68; BP_DIAS 74
[2021-12-06] MEDS: FLECAINIDE 50MG TABLET PO SCH (08:34)
[2021-12-06 08:35] VITALS: BP 140/68
[2021-12-06] MEDS: LOSARTAN 25 MG TAB PO SCH (08:35)
[2021-12-06] MEDS: METOPROLOL TART 25 MG TABLET PO SCH (08:35)
[2021-12-06] MEDS ORDERED: METAMUCIL (PSYLLIUM) PACKET PO SCH (09:00)
[2021-12-06] MEDS ORDERED: ASPIRIN 81 MG CHEW TABLET PO SCH (09:00)
[2021-12-06] MEDS ORDERED: ROSU5TAB5 PO (09:40)
[2021-12-06] MEDS ORDERED: ECOT81TA5 PO (09:57)
== END 2021-12-06 15:07 | disposition home or self-care (01) ==
LOC: M ED 20:58 → M ED INP 12-05 01:46 → ENRESERV 12-05 10:09 → M PCU 12-05 18:05
PROVIDERS: ADMIT Internal Medicine; ATTEND Internal Medicine
DX: H53.122 Transient visual loss, left eye (principal); I16.0 Hypertensive urgency; I48.91 Unspecified atrial fibrillation; Z86.711 Personal history of pulmonary embolism; Z86.718 Personal history of other venous thrombosis and embolism; I67.4 Hypertensive encephalopathy; I10 Essential (primary) hypertension; Z86.16 Personal history of COVID-19; Z85.038 Personal history of other malignant neoplasm of large intestine; Z79.899 Other long term (current) drug therapy; Z88.1 Allergy status to other antibiotic agents; Z88.8 Allergy status to other drugs, medicaments and biological substances
CPT/HCPCS: 36415; 70450; 70496; 70498; 70551; 71045; 80047; 80048; 81000; 82550; 82553; 84484; 85025; 85027; 85610; 85730; 87631; 93005; 93041; 93306; 94760; 96374; 96376; 97116; 97161; 97165; 97530; 99285; G0378; J0360; Q9967